=== PATIENT | male | born 1940 | race Caucasian/White ===

== ENCOUNTER → 2019-12-20 | Outpatient (CLI) | payer MEDICARE, SELFPAY ==
--- NOTE | 2019-12-20 | IMM_PTH ---
PATIENT: LAMONT GREGORY LOC: [facility] U#:[id number] AGE/SX: 79/M ROOM: RE12/20/[address]: Dr. Beau Diamond MD : 1940 BED: DIS: 12/20/2019 SPEC #: [id number] RECD: 12/22/19 12:41 STATUS: DINO REGodfrey #: [id number] PONCHO: 12/20/19 00:[address]: Beau Diamond DEPT: IMMUNOHISTOCHEMISTRY RECD BY: Joann Tejeda ENTERED: 12/22/19 12:42 SP TYPE: IMMUNO OTHR DR: Out [facility] Doctor Tissues: B - PROSTATE RIGHT D - PROSTATE LEFT Procedures: 34BE12 (add) P40 (add) 34BE12 (initial) PHYSICIAN & INSTITUTION [place] [id number] SPECIMEN INFORMATION: Tissue Source: B - Right prostate, mid, core biopsy, D - Left prostate, apex, core biopsy Clinical Info: Elevated PSA Specimen Number: [id number] B & D CPT code: 65104, 56124 x3 METHODOLOGY: Deparaffinized sections of prefer/formalin-fixed tissue or PAP/DQ stained slides are incubated with monoclonal/polyclonal antibodies/oligonucleotide probes. Localization is made via biotin free immunoperoxidase method. Appropriate controls are performed and reacted as expected. Results on target cell population are indicated in the following table: RESULTS: ANTIBODY / CLONE RESULT Block B P40 (BC28) negative 34BE12 (34BE12) negative Block D P40 (BC28) negative 34BE12 (34BE12) negative These tests were developed and their performance characteristics determined by [facility]. They may not have been cleared or approved by the U.[place]. Food and Drug Administration. The FDA has determined that such clearance or approval is not necessary. The above immunohistochemical/dualISH markers are ordered and reviewed by the Pathologist. INTERPRETATION: B. Right prostate, mid, core biopsy: Adenocarcinoma. D. Left prostate, apex, core biopsy: Adenocarcinoma. SJ:frankie 12/23/19
--- NOTE | 2019-12-20 16:00 | PROSBIL_PTH ---
PATIENT: LAMONT GREGORY LOC: [facility] U#:[id number] AGE/SX: 79/M ROOM: RE12/20/[address]: Dr. Beau Diamond MD : 1940 BED: DIS: 12/20/2019 SPEC #: [id number] RECD: 12/20/19 16:35 STATUS: DINO BARBIE #: [id number] PONCHO: 12/20/19 16:[address]: Beau Diamond DEPT: SURGICAL PATHOLOGY RECD BY: Christopher Jackson ENTERED: 12/21/19 10:01 SP TYPE: PROST BX PORSHA DR: Out of [facility] Doctor Tissues: A - PROSTATE RIGHT B - PROSTATE RIGHT C - PROSTATE RIGHT D - PROSTATE LEFT E - PROSTATE LEFT F - PROSTATE LEFT Procedures: PROSTATE BX HEADER OPERATION: Prostate biopsy PRE-OP DIAGNOSIS: Elevated PSA TISSUE SUBMITTED: A - Right apex, B - Right mid, C - Right base, D - Left apex, E - Left mid, F - Left base MICROSCOPIC DIAGNOSIS A. Right prostate, apex, core biopsy: Prostatic tissue, negative for malignancy. B. Right prostate, mid, core biopsy: Prostatic adenocarcinoma. [place] grade: 3+3=6 Number of cores involved: 1/1 Proportion of tissue involved: ~15% Perineural invasion: suspected. Greatest tumor length: 0.2 cm Focal high-grade prostatic intraepithelial neoplasia (HGPIN). See comment. C. Right prostate, base, core biopsy: Prostatic tissue, negative for malignancy. D. Left prostate, apex, core biopsy: Prostatic adenocarcinoma. [place] grade: 3+3=6 Number of cores involved: 1/2 Proportion of tissue involved: 20-25% Perineural invasion: Not identified. Greatest tumor length: 0.3 cm See comment. E. Left prostate, mid, core biopsy: Prostatic adenocarcinoma. [place] grade: 3+4=7 Number of cores involved: 1/1 Proportion of tissue involved: ~40% Perineural invasion: present, focal Greatest tumor length: 0.6 cm, discontinuous F. Left prostate, base, core biopsy: Prostatic adenocarcinoma. [place] grade: 3+4=7 Number of cores involved: 1/1 Proportion of tissue involved: ~50% Perineural invasion: Present, focal. Greatest tumor length: 0.7 cm SJ:frankie 12/22/19 COMMENT B & D - Immunohistochemistry ([id number]) supports the above diagnosis. This case has been reviewed in consultation with Dr. Oh who concurs with the above diagnosis. MICROSCOPIC DESCRIPTION Slides are reviewed. GROSS DESCRIPTION A - Received is one container designated prostate, right apex. The specimen consists of one elongated fragment of light barks[place]-white soft tissue measuring 1 cm in length and 0.1 cm in diameter. The specimen is totally submitted in one cassette. B - Received is one container designated prostate, right mid. The specimen consists of one elongated fragment of light [place]-white soft tissue measuring 1.5 cm in length and 0.1 cm in diameter. The specimen is totally submitted in one cassette. C - Received is one container designated prostate, right base. The specimen consists of one elongated fragment of light [place]-white soft tissue measuring 1.5 cm in length and 0.1 cm in diameter. The specimen is totally submitted in one cassette. D - Received is one container designated prostate, left apex. The specimen consists of two elongated fragments of light [place]-white soft tissue measuring 0.5 and 0.7 cm in length and 0.1 cm in diameter. The specimen is totally submitted in one cassette. E - Received is one container designated prostate, left mid. The specimen consists of one elongated fragment of light [place]-white soft tissue measuring 1.2 cm in length and 0.1 cm in diameter. The specimen is totally submitted in one cassette. F - Received is one container designated prostate, left base. The specimen consists of one elongated fragment of light barks[place]-white soft tissue measuring 1.5 cm in length and 0.1 cm in diameter. The specimen is totally submitted in one cassette. / SJ:rg 12/21/19 TC:0 [facility]: [id number]
== END | disposition home or self-care (01) ==
PROVIDERS: Referring Provider Urology; Visit Provider Urology
DX: R97.20 Elevated prostate specific antigen [PSA] (principal)
CPT/HCPCS: 88305; 88341; 88342; G0416

== ENCOUNTER → 2019-12-21 | Outpatient (CLI) | payer MEDICARE, SELFPAY | END | disposition home or self-care (01) | LOC: LABSPEC 16:20 | PROVIDERS: PCP Family Medicine; Referring Provider Urology; Visit Provider Urology | DX: R97.20 Elevated prostate specific antigen [PSA] (principal) ==

== ENCOUNTER → 2020-01-03 | Outpatient (CLI) | payer MEDICARE, SELFPAY ==
--- NOTE | 2020-01-03 16:54 | CT_ITS ---
STUDY: CT ABDOMEN AND PELVIS WITH CONTRAST REASON FOR EXAM: Male, 79 years old. PROSTATE CA-NEW DX RADIATION DOSAGE (If Supplied By Facility): CTDIvol = ( 12.46 ) mGy, DLP = ( 571.74 ) mGycm TECHNIQUE: Transaxial images were obtained from the dome of the diaphragm to the symphysis pubis without oral contrast. Oral and amp; IV Readi-CAT and amp; 100mL Isovue-300 was administered. Sagittal and coronal images were reconstructed. Individualized dose optimization techniques were used for this CT. COMPARISON: None. FINDINGS: Interstitial thickening is noted within the lower lobes.. The visualized portions of the heart are within normal limits. The liver is fatty infiltrated without mass.. There is mild biliary sludge or noncalcified stones within the gallbladder.. Normal spleen. Normal pancreas. Normal bilateral adrenal glands. No evidence for renal obstruction or ureteral calculus. There is a small complex cyst or solid nodule in left kidney. Normal visualized stomach. Nonspecific ileus with diffuse fecal retention in the colon. The appendix is visualized and appears normal. Atherosclerotic changes of the aorta without evidence for aneurysm. Normal inferior vena cava. Normal retroperitoneum. Normal urinary bladder. Markedly enlarged prostate encroaching upon the base of the bladder. Normal abdominal wall. Lumbar spine demonstrates degenerative change. Chronic compression of superior endplate of L4 and L1. CT/Abdomen/Pelvis WITH Contrast IMPRESSION: Nonspecific enlargement of the prostate which may be consistent with neoplasm as per clinical history. No evidence for retroperitoneal adenopathy liver metastasis or bone metastasis at this time Biliary sludge or noncalcified stones within the gallbladder. This may be further assessed with ultrasound if indicated incidental finding of small complex cyst or solid nodule in left kidney which may be further assessed with MRI. Electronically Signed: Ian Rodriguez MD at 21:01 EDT , Service support ,
[2020-01-03 17:15] LABS: CREATININE FINGERSTICK 0.7 mg/dL (0.70-1.30); EGFR FINGERSTICK > 60.0000 mL/min (>60)
== END | disposition home or self-care (01) ==
LOC: CT 16:51
PROVIDERS: PCP Family Medicine; Referring Provider Urology; Visit Provider Urology
DX: C61 Malignant neoplasm of prostate (principal)
CPT/HCPCS: 74177; Q9967; A4216